=== PATIENT | male | born 1980 | race American Indian/Alaskan Native ===

== ENCOUNTER 2018-05-16 11:39 | Emergency (ER) | payer OTHER ==
[2018-05-16 12:16] VITALS: BP 144/82
--- NOTE | 2018-05-16 12:18 | Emergency Department Report ---
Blank Doc - Documentation Documentation: pt presents to ED cc of sinus congestion x last month and getting worse PLAn: flonase, claritin, pred ACC evaluate
--- NOTE | 2018-05-16 15:55 | Emergency Department Report ---
Chief Complaint: Upper Respiratory Infection Stated Complaint: ALLERGIES/COLD SX Time Seen by Provider: 05/16/18 12:15 - HPI History of Present Illness: Patient is a 38-year-old [place] male who is presenting with a week of cough congestion runny nose and runny eyes. Patient states he he has seasonal allergies and is coming in for treatment. - ROS Review of Systems: All other systems have been reviewed and are negative - Exam Vital Signs: Vital Signs 05/16/18 12:15 Temperature 97.6 F Pulse Rate 80 Respiratory 16 Rate Blood Pressure 144/82 O2 Sat by Pulse 98 Oximetry Physical Exam: Patient has some tearing to the eyes but no facial pain on palpation his throat is within normal limits. Lungs clear to auscultation abdomen soft nontender heart tones normal. MSE screening note: Focused history and physical exam performed. Due to findings the following was ordered: ED Medical Decision Making - Medical Decision Making I suggested the patient started taking Claritin or Zyrtec. Patient is not having any emergent condition at this time. Patient's issues can be treated as an outpatient. Patient has opted to not able $150 co-pay. Patient was discharged. ED Disposition for MSE Clinical Impression: Seasonal allergic rhinitis Qualifiers: Allergic rhinitis trigger: pollen Qualified Code(s): J30.1 - Allergic rhinitis due to pollen Disposition: MED SCREENING EXAM-LEFT Is pt being admited?: No Does the pt Need Aspirin: No Condition: Stable Instructions: Allergic Rhinitis (ED) Additional Instructions: Please try [id number] Claritin or Zyrtec for allergy symptoms. He may also try [id number] Flonase which will help with nasal congestion. Visine allergy drops will help with the eye burning Referrals: KACY RAMSEY MD [Primary Care Provider] - 3-5 Days Time of Disposition: 15:54
== END 2018-05-16 16:03 | disposition left against medical advice (07) ==
LOC: ED 11:39
DX: J30.1 Allergic rhinitis due to pollen (principal)
CPT/HCPCS: 99282